=== PATIENT | female | born 1995 | race Hispanic/Latino ===

== ENCOUNTER 2018-03-20 02:29 | Emergency (ER) | payer BC ==
[2018-03-20 03:32] LABS: APPEARANCE,URINE Clear (CLEAR); BILIRUBIN,URINE Negative (NEGATIVE); COLOR,URINE Yellow (YELLOW); GLUCOSE, URINE (UA) Negative (NEGATIVE); KETONES,URINE >=80 mg/dL (NEGATIVE); LEUKOCYTE ESTERASE ,URINE Negative (NEGATIVE); NITRATE,URINE Negative (NEGATIVE); OCCULT BLOOD,URINE Negative (NEGATIVE); PH,URINE 5.5 (5.0-8.0); PROTEIN,URINE POS 1+ (NEGATIVE)
[2018-03-20 03:36] LABS: BASOPHILS % (AUTO) 0.1 % (0.0-5.0); HEMATOCRIT 39.9 % (36-48); LYMPHOCYTES % (AUTO) 9.5 % (21.0-51.0); MEAN CORPUSCULAR HEMOGLOBIN 30.1 pg (27.0-33.0); MEAN CORPUSCULAR HGB CONC 33.8 g/dL (32.0-36.0); MONOCYTES % (AUTO) 7.2 % (3.0-13.0); NEUTROPHILS % (AUTO) 83.2 % (40.0-77.0); NUCLEATED RED BLOOD CELLS 0.1 % (0.0-0.19); PLATELET COUNT (AUTO) 277 K/uL (130-400); RED BLOOD CELL COUNT(AUTO) 4.48 MIL/uL (4.00-5.50); RED CELL DISTRIBUTION WIDTH 13.5 % (11.0-15.5); WHITE BLOOD COUNT (AUTO) 8.2 K/uL (4.8-10.8)
[2018-03-20] MEDS ORDERED: KETOROLAC TROMETHAMINE 30MG/ML ONE (03:38)
[2018-03-20] MEDS ORDERED: ACETAMINOPHEN 325 MG TAB ONE (03:38)
[2018-03-20] MEDS ORDERED: SODIUM CHLORIDE 0.9% 1000ML 1,000 ML IV ONE (03:38)
[2018-03-20 03:40] LABS: AMPHET/METH SCREEN,URINE NEGATIVE (NEGATIVE); BARBITURATE SCREEN, URINE NEGATIVE (NEGATIVE); BENZODIAZEPINES SCREEN,URINE NEGATIVE (NEGATIVE); CANNABINOID SCREEN,URINE NEGATIVE (NEGATIVE); COCAINE SCREEN,URINE NEGATIVE (NEGATIVE); OPIATE SCREEN,URINE NEGATIVE (NEGATIVE); PHENCYCLIDINE SCREEN,URINE NEGATIVE (NEGATIVE)
[2018-03-20 03:45] LABS: CREATININE 0.8 mg/dL (0.5-1.5); POTASSIUM 3.5 mmol/L (3.5-5.1)
[2018-03-20 03:50] LABS: ALBUMIN 3.9 g/dL (3.5-5.0); TOTAL PROTEIN, SERUM 7.7 g/dL (6.0-8.3)
== END 2018-03-20 05:17 | disposition home or self-care (01) ==
LOC: EDH 02:29
DX: R07.89 Other chest pain (principal); R11.2 Nausea with vomiting, unspecified
CPT/HCPCS: 36415; 70450; 80053; 80305; 81003; 81025; 83690; 84484; 85025; 85378; 87804 ×2; 96361; 96374; 99285; J1885; J7030

== ENCOUNTER 2018-03-20 20:18 | Inpatient (IN) | payer BC ==
[~2018-03-20] VITALS: Ht 157.5 cm; Wt 58.1 kg
[2018-03-20] MEDS ORDERED: SODIUM CHLORIDE 0.9% 1000ML 1,000 ML IV ONE (21:14)
[2018-03-20] MEDS ORDERED: KETOROLAC TROMETHAMINE 30MG/ML ONE (21:14)
[2018-03-20] MEDS ORDERED: ASPIRIN 325 MG TABLET ONE (21:59)
[2018-03-20] MEDS ORDERED: NITROGLYCERIN 1GM/1 INCH PACKET TD ONE (21:59)
[2018-03-20] MEDS ORDERED: ENOXAPARIN SODIUM 60 MG/0.6 ML SQ ONE (23:53)
[2018-03-21] VITALS (10 sets, daily range): BP systolic 106–124; BP diastolic 63–87
[2018-03-21] MEDS ORDERED: ONDANSETRON HCL 4 MG/2 ML VIAL IV PRN
[2018-03-21] MEDS ORDERED: MORPHINE SULFATE 4 MG/1ML SYG IV PRN
[2018-03-21] MEDS ORDERED: ACETAMINOPHEN 325 MG TAB PO PRN
[2018-03-21] MEDS ORDERED: SODIUM CHLORIDE 0.9% 500ML 500 ML IV ONE (05:45)
[2018-03-21 06:01] LABS: CHOLESTEROL 111 mg/dL (<200); HDL CHOLESTEROL 56 mg/dL (35-85); LDL DIRECT 53 mg/dL (0-99); TRIGLYCERIDES 36 mg/dL (30-200)
[2018-03-21] MEDS: NITROGLYCERIN 1GM/1 INCH PACKET TD SCH ×3 (08:00→16:00)
[2018-03-21] MEDS ORDERED: ASPIRIN 325 MG TABLET PO SCH (09:00)
[2018-03-21] MEDS ORDERED: FAMOTIDINE/PF 20 MG/2 ML VIAL IV SCH (09:00)
[2018-03-21] MEDS ORDERED: HEPARIN SODIUM 1000UNIT/ML 10ML VIAL ONE (09:09)
[2018-03-21] MEDS ORDERED: IOHEXOL-350 50ML VIAL IV ONE (09:09)
[2018-03-21] MEDS ORDERED: NITROGLYCERIN 5 MG/ML 10 ML VIAL IV ONE (09:09)
[2018-03-21] MEDS ORDERED: BIVALIRUDIN 250 MG/VIAL IV ONE (09:09)
[2018-03-21] MEDS ORDERED: LIDOCAINE HCL 1% 20 ML VIAL ONE (09:09)
[2018-03-21] MEDS ORDERED: IOHEXOL 350 MG/ML 100ML INFUS..BTL IV ONE (09:09)
[2018-03-21] MEDS ORDERED: MIDAZOLAM HCL 1 MG/ML 2ML VIAL ONE ×2 (09:28→10:11)
[2018-03-21] MEDS ORDERED: FENTANYL CITRATE PF 50 MCG/1 ML 2ML VIAL ONE (09:28)
[2018-03-21] MEDS ORDERED: NITROGLYCERIN 0.4 MG SL TAB SL PRN (10:45)
[2018-03-21] MEDS ORDERED: HYDRALAZINE HCL 20 MG/ML VIAL IV PRN (10:45)
[2018-03-21] MEDS ORDERED: METOPROLOL TARTRATE 1 MG/ML 5ML VIAL IV PRN (10:45)
[2018-03-21] MEDS ORDERED: SODIUM CHLORIDE 0.9% 1000ML 1,000 ML IV SCH (11:00)
--- NOTE | 2018-03-21 11:15 | NUR ---
POST PROCEDURE RECEIVED PT FROM SUPERINTENDENT [employer]CTION, IN FLAT POSITION, A&OX3, CALM COOPERATIVE AND DOES NOT APPEAR TO BE IN ANY DISTRESS NOR ANY NEURO DEFICITS PRESENT. LEFT GROIN SITE DRY AND INTACT WITH NO OOZING OR HEMATOMA PRESENT. DP/PT PULSES PALPABLE AND VERIFIED BY DOPPLER. PT ON BEDREST FOR 2 HOURS UNTIL 1300. CALL LIGHT WITHIN REACH, FAMILY AT BEDSIDE.
--- NOTE | 2018-03-21 13:08 | NUR ---
DC PLAN VISITED WITH PATIENT. PATIENT LIVES WITH PARENTS. INDEPENDENT ABLE TO PERFORM ADL'S. PATIENT HAS NO SERVICES OR DME'S. FEELS SAFE TO RETURN HOME. Addendum: 03/21/18 at 1309 by MARTELL JENSEN RN CM Amended: Links added.
--- NOTE | 2018-03-21 13:30 | NUR ---
BEDREST COMPLETE LEFT GROIN SOFT NONTENDER WITH NO OOZING OR HEMATOMA PRESENT. DP/PT PULSES BY DOPPLER. PT DOES C/O INCISIONAL DISCOMFORT. PT REPOSITIONED TO HIGH ANDRADE'S POSITION, TOLERATING WELL, CALL LIGHT WITHIN REACH, FAMILY AT BEDSIDE.
[2018-03-21] MEDS: ASPIRIN 81MG TAB.CHEW PO SCH (16:39)
[2018-03-21] MEDS: METOPROLOL TARTRATE 25 MG TAB PO SCH ×2 (16:39→18:50)
--- NOTE | 2018-03-21 18:16 | NUR ---
AMBULATION PT AMBULATING IN HALLWAY, GAIT SLOW BUT STEADY WITH STAND BY ASSIST, PT DENIES DIZZINESS, LIGHTHEADEDNESS, DYSPNEA ON EXERTION BUT DOES C/O SORENESS TO INCISION SITE, RT GROIN SOFT WITH NO OOZING OR HEMATOMA PRESENT. DP/PT PULSES PALPABLE. CALL LIGHT WITHIN REACH, FAMILY AT BEDSIDE.
[2018-03-21] MEDS ORDERED: PHARMACY COMMUNICATION MISC SCH (19:15)
[2018-03-21] MEDS: FAMOTIDINE 20MG TAB 20 MG TAB PO SCH (21:45)
[2018-03-22] MEDS: NITROGLYCERIN 1GM/1 INCH PACKET TD SCH ×2 (00:24→08:43)
[2018-03-22 03:55] VITALS: BP 112/63
[2018-03-22 04:06] LABS: CHOLESTEROL 112 mg/dL (<200); HDL CHOLESTEROL 52 mg/dL (35-85); LDL DIRECT 59 mg/dL (0-99); TRIGLYCERIDES 31 mg/dL (30-200)
--- NOTE | 2018-03-22 07:30 | NUR ---
ASSESSMENT ENCOUNTERED PT A&OX3, CALM COOPERATIVE AND DOES NOT APPEAR TO BE IN ANY DISTRESS NOR ANY NEURO DEFICITS PRESENT. PT DENIES PAIN, SOB, NAUSEA. RT AND LEFT GROIN SOFT NO OOZING OR HEMATOMA PRESENT. DP/PT PULSES PALPABLE. PT IS AMBULATORY, GAIT SLOW BUT STEADY AND STRONG. CALL LIGHT WITHIN REACH, FAMILY AT BEDSIDE.
[2018-03-22 07:34] VITALS: BP 116/76
[2018-03-22] MEDS: METOPROLOL TARTRATE 25 MG TAB PO SCH (08:42)
[2018-03-22] MEDS: ASPIRIN 81MG TAB.CHEW PO SCH (08:42)
[2018-03-22] MEDS: FAMOTIDINE 20MG TAB 20 MG TAB PO SCH (08:42)
[2018-03-22] MEDS ORDERED: ASPIRIN 81MG TAB.CHEW PO SCH (09:00)
[2018-03-22 11:45] VITALS: BP 106/69
--- NOTE | 2018-03-22 13:30 | NUR ---
DISCHARGE INSTRUCTIONS GIVEN, PIV REMOVED AND INTACT, DISCHARGED HOME TO FAMILY VEHICLE VIA WHEELCHAIR.
[2018-03-22] MEDS ORDERED: METOPROLOL TARTRATE 25 MG TAB PO SCH (21:00)
== END 2018-03-22 13:40 | disposition home or self-care (01) | DRG 282 ==
LOC: EDH 20:18 → EDHIP 23:30 → OBSVTOIN 23:30 → 2BH 03-21 10:59
PROVIDERS: ADMIT Internal Medicine; ATTEND Internal Medicine
PROC: 4A023N7 Measurement of Cardiac Sampling and Pressure, Left Heart, Percutaneous Approach (ICD-10-PCS; principal; 2018-03-21)
PROC: B2111ZZ Fluoroscopy of Multiple Coronary Arteries using Low Osmolar Contrast (ICD-10-PCS; 2018-03-21)
PROC: B2151ZZ Fluoroscopy of Left Heart using Low Osmolar Contrast (ICD-10-PCS; 2018-03-21)
DX: I21.4 Non-ST elevation (NSTEMI) myocardial infarction (principal); I25.111 Atherosclerotic heart disease of native coronary artery with angina pectoris with documented spasm; Z83.3 Family history of diabetes mellitus; I24.9 Acute ischemic heart disease, unspecified; Z82.49 Family history of ischemic heart disease and other diseases of the circulatory system
CPT/HCPCS: 36415; 80061; 84484; 93005; 93458; 99156; 99157; C1894; G0378; J0583; J1644; J1650; J1885; J2250; J3010; J3490; J7030; J7040; Q9967

== ENCOUNTER 2018-04-06 15:07 | Observation (INO) | payer BC ==
[~2018-04-06] VITALS: Ht 157.5 cm; Wt 59.4 kg
[2018-04-06] MEDS ORDERED: NITROGLYCERIN 1GM/1 INCH PACKET TD ONE (15:16)
[2018-04-06 15:46] LABS: BASOPHILS % (AUTO) 0.8 % (0.0-5.0); EOSINOPHILS % (AUTO) 1.7 % (0.0-8.0); LYMPHOCYTES % (AUTO) 27.5 % (21.0-51.0); MEAN CORPUSCULAR HEMOGLOBIN 29.4 pg (27.0-33.0); MEAN CORPUSCULAR HGB CONC 33.2 g/dL (32.0-36.0); MEAN CORPUSCULAR VOLUME 88.6 fL (79-99); PLATELET COUNT (AUTO) 352 K/uL (130-400); RED BLOOD CELL COUNT(AUTO) 4.29 MIL/uL (4.00-5.50); RED CELL DISTRIBUTION WIDTH 13.2 % (11.0-15.5); WHITE BLOOD COUNT (AUTO) 6.6 K/uL (4.8-10.8)
[2018-04-06 15:52] LABS: BILIRUBIN,URINE Negative (NEGATIVE); COLOR,URINE Yellow (YELLOW); GLUCOSE, URINE (UA) Negative (NEGATIVE); KETONES,URINE Negative (NEGATIVE); LEUKOCYTE ESTERASE ,URINE Negative (NEGATIVE); NITRATE,URINE Negative (NEGATIVE); OCCULT BLOOD,URINE Large (NEGATIVE); PROTEIN,URINE Negative (NEGATIVE); UROBILINOGEN,URINE 0.2 mg/dL (0.2-1.0)
[2018-04-06 15:54] LABS: APPEARANCE,URINE CLEAR (CLEAR)
[2018-04-06 15:57] LABS: HCG,QUAL RESULT NEGATIVE (NEGATIVE)
[2018-04-06 15:59] LABS: AMPHET/METH SCREEN,URINE NEGATIVE (NEGATIVE); BARBITURATE SCREEN, URINE NEGATIVE (NEGATIVE); BENZODIAZEPINES SCREEN,URINE NEGATIVE (NEGATIVE); CANNABINOID SCREEN,URINE NEGATIVE (NEGATIVE); COCAINE SCREEN,URINE NEGATIVE (NEGATIVE); OPIATE SCREEN,URINE NEGATIVE (NEGATIVE); PHENCYCLIDINE SCREEN,URINE NEGATIVE (NEGATIVE)
[2018-04-06 16:00] LABS: BACTERIA,URINE Rare /HPF (None Seen); RBC,URINE 0-1 /HPF (0-1); WBC,URINE 0-1 /HPF (0-1)
[2018-04-06 16:00] LABS: CREATININE 0.8 mg/dL (0.5-1.5); POTASSIUM 3.7 mmol/L (3.5-5.1)
[2018-04-06 16:01] LABS: SQUAMOUS EPITHELIAL CELL,UR Few /HPF (0-2)
[2018-04-06 16:05] LABS: ALBUMIN 3.7 g/dL (3.5-5.0); BILIRUBIN,TOTAL 0.5 mg/dL (0.2-1.0); TOTAL PROTEIN, SERUM 7.3 g/dL (6.0-8.3)
[2018-04-06] MEDS ORDERED: ONDANSETRON HCL 4 MG/2 ML VIAL ONE (16:58)
[2018-04-06] MEDS ORDERED: MORPHINE SULFATE 4 MG/1ML SYG ONE (16:59)
[2018-04-06] MEDS ORDERED: ASPIRIN 325MG EC TAB 325 MG TABLET.DR PO STA (19:15)
[2018-04-06] MEDS: SODIUM CHLORIDE 0.9% 1000ML 1,000 ML IV SCH (19:17)
[2018-04-06] MEDS ORDERED: POTASSIUM CHLORIDE 20 MEQ ERTAB PO PRN (19:30)
[2018-04-06] MEDS ORDERED: POTASSIUM CHLORIDE 10% ELIXIR 20 MEQ/15 ML UDCUP PO PRN (19:30)
[2018-04-06] MEDS ORDERED: ACETAMINOPHEN 325 MG TAB PO PRN ×2 (19:30)
[2018-04-06] MEDS ORDERED: MAGNESIUM 2GM PREMIX 50ML 50 ML IV PRN (19:30)
[2018-04-06] MEDS ORDERED: MORPHINE SULFATE 4 MG/1ML SYG IV PRN (19:30)
[2018-04-06] MEDS ORDERED: LIDOCAINE HCL-MPF 1% 2ML VIAL IVP PRN (19:30)
[2018-04-06] MEDS ORDERED: ONDANSETRON HCL 4 MG/2 ML VIAL IV PRN (19:30)
[2018-04-06] MEDS ORDERED: MORPHINE SULFATE 2 MG/ML 1ML SYG IV PRN (19:30)
[2018-04-06] MEDS ORDERED: POTASSIUM CHLORIDE 20MEQ/100ML 100 ML IV PRN (19:30)
[2018-04-06] MEDS ORDERED: NITROGLYCERIN 0.4 MG SL TAB SL PRN (19:30)
[2018-04-06] MEDS: METOPROLOL TARTRATE 25 MG TAB PO SCH (21:00)
[2018-04-06] MEDS ORDERED: FAMOTIDINE 20MG TAB 20 MG TAB ONE (21:43)
[2018-04-06] MEDS ORDERED: ASPIRIN 325 MG TABLET ONE (21:44)
[2018-04-06] MEDS ORDERED: SODIUM CHLORIDE 0.9% 1000ML 1,000 ML IV ONE (21:44)
[2018-04-06] MEDS: FAMOTIDINE 20MG TAB 20 MG TAB PO SCH (21:45)
[2018-04-06] MEDS ORDERED: MAGNESIUM 2GM PREMIX 50ML 50 ML IV ONE (21:46)
[2018-04-06 23:00] LABS: CREATINE KINASE, TOTAL 56 U/L (21-232); MYOGLOBIN 15 ng/mL (10-92); TROPONIN I < 0.04 ng/mL (0.00-0.06)
[2018-04-07] MEDS ORDERED: IOHEXOL-350 50ML VIAL IV ONE (00:23)
[2018-04-07 01:10] VITALS: BP 109/66
[2018-04-07] MEDS ORDERED: NITR0.4T50 SL (01:50)
[2018-04-07] MEDS ORDERED: RANO500T2 PO (01:50)
[2018-04-07] MEDS ORDERED: ASPI-555 PO (01:50)
[2018-04-07 04:15] VITALS: BP 93/58
[2018-04-07 04:38] LABS: BASOPHILS % (AUTO) 0.7 % (0.0-5.0); EOSINOPHILS % (AUTO) 1.5 % (0.0-8.0); HEMATOCRIT 34.1 % (36-48); LYMPHOCYTES % (AUTO) 30.1 % (21.0-51.0); MEAN CORPUSCULAR HEMOGLOBIN 29.3 pg (27.0-33.0); MEAN CORPUSCULAR HGB CONC 32.9 g/dL (32.0-36.0); MONOCYTES % (AUTO) 6.3 % (3.0-13.0); NEUTROPHILS % (AUTO) 61.4 % (40.0-77.0); NUCLEATED RED BLOOD CELLS 0.1 % (0.0-0.19); PLATELET COUNT (AUTO) 279 K/uL (130-400); RED BLOOD CELL COUNT(AUTO) 3.84 MIL/uL (4.00-5.50); RED CELL DISTRIBUTION WIDTH 13.5 % (11.0-15.5); WHITE BLOOD COUNT (AUTO) 8.1 K/uL (4.8-10.8)
[2018-04-07 05:14] LABS: ALANINE AMINOTRANSFERASE 15 U/L (12-78); ALBUMIN 3.1 g/dL (3.5-5.0); ASPARTATE AMINOTRANSFERASE 14 U/L (10-37); BILIRUBIN,TOTAL 0.6 mg/dL (0.2-1.0); CARBON DIOXIDE 25 mmol/L (21-32); CHLORIDE 105 mmol/L (101-111); CHOLESTEROL 116 mg/dL (<200); CREATINE KINASE, TOTAL 51 U/L (21-232); CREATININE 0.7 mg/dL (0.5-1.5); GLOMERULAR FILTR. RATE CALC 111 mL/min (>60); GLUCOSE,RANDOM 95 mg/dL (70-105); HDL CHOLESTEROL 46 mg/dL (35-85); LDL DIRECT 71 mg/dL (0-99); MYOGLOBIN 31 ng/mL (10-92); SODIUM SERUM 139 mmol/L (136-145); TOTAL PROTEIN, SERUM 6.1 g/dL (6.0-8.3); TRIGLYCERIDES 32 mg/dL (30-200); TROPONIN I < 0.04 ng/mL (0.00-0.06); UREA NITROGEN, BLOOD 11 mg/dL (7-18)
[2018-04-07] MEDS: METOPROLOL TARTRATE 25 MG TAB PO SCH (07:58)
[2018-04-07 08:00] VITALS: BP 98/50
[2018-04-07] MEDS: FAMOTIDINE 20MG TAB 20 MG TAB PO SCH (08:02)
[2018-04-07] MEDS ORDERED: ASPIRIN 325MG EC TAB 325 MG TABLET.DR PO SCH (09:00)
[2018-04-07] MEDS ORDERED: ENOXAPARIN SODIUM 30 MG/0.3 ML SQ SCH (09:00)
--- NOTE | 2018-04-07 10:55 | NUR ---
Patient c/o of chest pain. Awake Alert and oriented x3, family at bedside calming pt down. VS taken 121/79 hr 123. FRANCESCA Broussard notified, EKG, troponin, and CE stat. Instructed patient to breath in through nose, exhale through lips. O2 placed on 2lpm via NC. Saturation 99%. Rhythm now 98. Patient calm upon exiting room. VS stable Addendum: 04/07/18 at 1113 by ANOOP ROLLINS RN RN Will continue to monitor
[2018-04-07 11:00] VITALS: BP 116/69
--- NOTE | 2018-04-07 11:19 | NUR ---
F/U on patient. Patient states pain to mid chest between breast now dull. Patient seems more relax. Alert, awake and oriented. Will continue to monitor.
[2018-04-07 12:12] LABS: CREATINE KINASE, TOTAL 61 U/L (21-232); MYOGLOBIN 23 ng/mL (10-92); TROPONIN I < 0.04 ng/mL (0.00-0.06)
[2018-04-07] MEDS ORDERED: ALPRAZOLAM 1 MG TAB PO ONE (12:40)
[2018-04-07] MEDS: SODIUM CHLORIDE 0.9% 1000ML 1,000 ML IV SCH (12:55)
== END 2018-04-07 15:52 | disposition home or self-care (01) ==
LOC: EDH 15:07 → EDHIP 19:15 → 4BH 23:11
PROVIDERS: ADMIT Internal Medicine; ATTEND Internal Medicine
DX: R07.89 Other chest pain (principal); R42 Dizziness and giddiness; E11.9 Type 2 diabetes mellitus without complications; R20.0 Anesthesia of skin; R51 Headache; I25.2 Old myocardial infarction; Z83.3 Family history of diabetes mellitus; Z82.49 Family history of ischemic heart disease and other diseases of the circulatory system; Z79.899 Other long term (current) drug therapy
CPT/HCPCS: 36415 ×2; 70470; 80053 ×2; 80061; 80305; 81001; 81025; 82550 ×3; 83735 ×2; 83874 ×3; 84443; 84484 ×5; 85025 ×2; 85378; 93005 ×3; 96361 ×2; 96365; 96366; 96372; 99283; G0378 ×21; J1650; J2270; J2405; J3475; J7030 ×2; Q9967

== ENCOUNTER 2018-04-13 02:28 | Emergency (ER) | payer BC ==
[~2018-04-13 02:28] MED LIST: ASPI-555 PO; NITR0.4T50 SL; RANO500T2 PO
[2018-04-13 03:16] LABS: BASOPHILS % (AUTO) 0.7 % (0.0-5.0); EOSINOPHILS % (AUTO) 3.6 % (0.0-8.0); HEMATOCRIT 38.1 % (36-48); LYMPHOCYTES % (AUTO) 42.4 % (21.0-51.0); MEAN CORPUSCULAR HEMOGLOBIN 29.6 pg (27.0-33.0); MEAN CORPUSCULAR HGB CONC 33.5 g/dL (32.0-36.0); MEAN CORPUSCULAR VOLUME 88.4 fL (79-99); NEUTROPHILS % (AUTO) 45.3 % (40.0-77.0); NUCLEATED RED BLOOD CELLS 0.1 % (0.0-0.19); PLATELET COUNT (AUTO) 274 K/uL (130-400); RED BLOOD CELL COUNT(AUTO) 4.31 MIL/uL (4.00-5.50); RED CELL DISTRIBUTION WIDTH 13.4 % (11.0-15.5); WHITE BLOOD COUNT (AUTO) 7.8 K/uL (4.8-10.8)
[2018-04-13 03:18] LABS: CREATININE 0.4 mg/dL (0.5-1.5); POTASSIUM 5.5 mmol/L (3.5-5.1)
[2018-04-13 03:23] LABS: INR 0.95 (0.85-1.15)
[2018-04-13 03:28] LABS: ALBUMIN 3.8 g/dL (3.5-5.0); BILIRUBIN,TOTAL 0.6 mg/dL (0.2-1.0); TOTAL PROTEIN, SERUM 7.2 g/dL (6.0-8.3)
[2018-04-13] MEDS ORDERED: ASPIRIN 325 MG TABLET ONE (03:39)
[2018-04-13 03:50] LABS: APPEARANCE,URINE Clear (CLEAR); BILIRUBIN,URINE Negative (NEGATIVE); COLOR,URINE Yellow (YELLOW); GLUCOSE, URINE (UA) Negative (NEGATIVE); KETONES,URINE Negative (NEGATIVE); LEUKOCYTE ESTERASE ,URINE Negative (NEGATIVE); NITRATE,URINE Negative (NEGATIVE); OCCULT BLOOD,URINE Negative (NEGATIVE); PH,URINE 7.5 (5.0-8.0); PROTEIN,URINE Negative (NEGATIVE); UROBILINOGEN,URINE 0.2 mg/dL (0.2-1.0)
[2018-04-13 03:53] LABS: HCG,QUAL RESULT NEGATIVE (NEGATIVE)
[2018-04-13 03:58] LABS: AMPHET/METH SCREEN,URINE NEGATIVE (NEGATIVE); BARBITURATE SCREEN, URINE NEGATIVE (NEGATIVE); BENZODIAZEPINES SCREEN,URINE NEGATIVE (NEGATIVE); CANNABINOID SCREEN,URINE NEGATIVE (NEGATIVE); COCAINE SCREEN,URINE NEGATIVE (NEGATIVE); OPIATE SCREEN,URINE NEGATIVE (NEGATIVE); PHENCYCLIDINE SCREEN,URINE NEGATIVE (NEGATIVE)
[2018-04-13] MEDS ORDERED: DiphenhydrAMINE HCL 50 MG/ML VIAL ONE (04:03)
[2018-04-13] MEDS ORDERED: SODIUM CHLORIDE 0.9% 1000ML 1,000 ML IV ONE (04:03)
== END 2018-04-13 05:32 | disposition home or self-care (01) ==
LOC: EDH 02:28
DX: R07.89 Other chest pain (principal); R68.84 Jaw pain; Z79.82 Long term (current) use of aspirin
CPT/HCPCS: 36415; 70450; 71045; 80053; 80305; 81003; 81025; 82550; 83735; 83874; 84484; 85025; 85610; 85730; 93005; 96374; 99285; J1200; J7030

== ENCOUNTER 2018-04-13 16:34 | Emergency (ER) | payer BC ==
[2018-04-13] MEDS ORDERED: DiphenhydrAMINE HCL 50 MG/ML VIAL ONE (17:30)
[2018-04-13 17:33] LABS: BASOPHILS % (AUTO) 0.5 % (0.0-5.0); EOSINOPHILS % (AUTO) 4.4 % (0.0-8.0); HEMATOCRIT 36.8 % (36-48); LYMPHOCYTES % (AUTO) 42.1 % (21.0-51.0); MEAN CORPUSCULAR HEMOGLOBIN 29.4 pg (27.0-33.0); MONOCYTES % (AUTO) 9.5 % (3.0-13.0); NEUTROPHILS % (AUTO) 43.5 % (40.0-77.0); NUCLEATED RED BLOOD CELLS 0.1 % (0.0-0.19); PLATELET COUNT (AUTO) 278 K/uL (130-400); RED BLOOD CELL COUNT(AUTO) 4.13 MIL/uL (4.00-5.50); RED CELL DISTRIBUTION WIDTH 13.5 % (11.0-15.5); WHITE BLOOD COUNT (AUTO) 5.2 K/uL (4.8-10.8)
[2018-04-13 17:46] LABS: INR 1.01 (0.85-1.15); PARTIAL THROMBOPLASTIN TIME 31.7 SEC (26.3-35.5); PROTHROMBIN TIME 10.6 SEC (9.6-11.6)
[2018-04-13 17:47] LABS: CREATININE 0.7 mg/dL (0.5-1.5); POTASSIUM 3.8 mmol/L (3.5-5.1)
[2018-04-13 17:51] LABS: ALBUMIN 3.7 g/dL (3.5-5.0); BILIRUBIN,TOTAL 0.7 mg/dL (0.2-1.0); TOTAL PROTEIN, SERUM 7.1 g/dL (6.0-8.3)
== END 2018-04-13 19:00 | disposition home or self-care (01) ==
LOC: EDH 16:34
DX: G24.8 Other dystonia (principal); Z98.890 Other specified postprocedural states
CPT/HCPCS: 36415; 80053; 82550; 83735; 84484; 85025; 85610; 85730; 96374; 99285; J1200

== ENCOUNTER 2019-01-08 11:08 | Emergency (ER) | payer BC ==
[2019-01-08] MEDS ORDERED: ONDANSETRON HCL 4 MG/2 ML VIAL ONE (11:26)
[2019-01-08] MEDS ORDERED: SODIUM CHLORIDE 0.9% 1000ML 1,000 ML IV ONE ×3 (11:27→15:50)
[2019-01-08 12:07] LABS: BASOPHILS % (AUTO) 0.3 % (0.0-5.0); EOSINOPHILS % (AUTO) 2.9 % (0.0-8.0); HEMATOCRIT 35.7 % (36-48); LYMPHOCYTES % (AUTO) 12.6 % (21.0-51.0); MEAN CORPUSCULAR HEMOGLOBIN 30.8 pg (27.0-33.0); MEAN CORPUSCULAR HGB CONC 34.6 g/dL (32.0-36.0); MEAN CORPUSCULAR VOLUME 88.8 fL (79-99); MONOCYTES % (AUTO) 7.6 % (3.0-13.0); NEUTROPHILS % (AUTO) 76.6 % (40.0-77.0); PLATELET COUNT (AUTO) 263 K/uL (130-400); RED BLOOD CELL COUNT(AUTO) 4.01 MIL/uL (4.00-5.50); RED CELL DISTRIBUTION WIDTH 14.2 % (11.0-15.5); WHITE BLOOD COUNT (AUTO) 9.5 K/uL (4.8-10.8)
[2019-01-08 12:09] LABS: APPEARANCE,URINE Clear (CLEAR); BILIRUBIN,URINE Negative (NEGATIVE); COLOR,URINE Yellow (YELLOW); GLUCOSE, URINE (UA) Negative (NEGATIVE); KETONES,URINE Negative (NEGATIVE); LEUKOCYTE ESTERASE ,URINE Negative (NEGATIVE); NITRATE,URINE Negative (NEGATIVE); OCCULT BLOOD,URINE Negative (NEGATIVE); PH,URINE 6.5 (5.0-8.0); PROTEIN,URINE Negative (NEGATIVE); UROBILINOGEN,URINE 0.2 mg/dL (0.2-1.0)
[2019-01-08 12:17] LABS: RAPID GROUP A STREP NEGATIVE (NEGATIVE)
[2019-01-08 12:18] LABS: CREATININE 0.5 mg/dL (0.5-1.5); POTASSIUM 3.7 mmol/L (3.5-5.1)
[2019-01-08 12:25] LABS: ALBUMIN 3.2 g/dL (3.5-5.0); BILIRUBIN,TOTAL 0.3 mg/dL (0.2-1.0); TOTAL PROTEIN, SERUM 7.6 g/dL (6.0-8.3)
[2019-01-08] MEDS ORDERED: ACETAMINOPHEN 325 MG TAB ONE (14:03)
[2019-01-08 15:11] LABS: AMPHET/METH SCREEN,URINE NEGATIVE (NEGATIVE); BARBITURATE SCREEN, URINE NEGATIVE (NEGATIVE); BENZODIAZEPINES SCREEN,URINE NEGATIVE (NEGATIVE); CANNABINOID SCREEN,URINE NEGATIVE (NEGATIVE); COCAINE SCREEN,URINE NEGATIVE (NEGATIVE); OPIATE SCREEN,URINE NEGATIVE (NEGATIVE); PHENCYCLIDINE SCREEN,URINE NEGATIVE (NEGATIVE)
== END 2019-01-08 16:36 | disposition home or self-care (01) ==
LOC: EDH 11:08
DX: O21.8 Other vomiting complicating pregnancy (principal); O26.892 Other specified pregnancy related conditions, second trimester; R50.9 Fever, unspecified; R00.0 Tachycardia, unspecified; E86.0 Dehydration; Z98.890 Other specified postprocedural states; Z3A.15 15 weeks gestation of pregnancy
CPT/HCPCS: 36415; 80053; 80305; 81003; 84484; 85025; 87804 ×2; 87880; 93005; 96361; 96374; 99291; J2405; J7030 ×3

== ENCOUNTER 2019-07-09 20:50 | Observation (INO) | payer BC, MEDICAID ==
[~2019-07-09] VITALS: Ht 157.5 cm; Wt 73.5 kg
[2019-07-09] VITALS: BP 134/77
[~2019-07-09 20:50] MED LIST changes: -ASPI-555 PO; +ASPI-556 PO
[2019-07-09] MEDS ORDERED: ASPIRIN 325 MG TABLET ONE (21:10)
[2019-07-09 21:37] LABS: HCG,QUAL RESULT POSITIVE (NEGATIVE)
[2019-07-09 21:40] LABS: APPEARANCE,URINE Clear (CLEAR); BILIRUBIN,URINE Negative (NEGATIVE); COLOR,URINE Yellow (YELLOW); GLUCOSE, URINE (UA) Negative (NEGATIVE); KETONES,URINE Negative (NEGATIVE); LEUKOCYTE ESTERASE ,URINE Moderate (NEGATIVE); NITRATE,URINE Negative (NEGATIVE); OCCULT BLOOD,URINE Large (NEGATIVE); PH,URINE 7.5 (5.0-8.0); PROTEIN,URINE Negative (NEGATIVE); UROBILINOGEN,URINE 0.2 mg/dL (0.2-1.0)
[2019-07-09 21:41] LABS: AMPHET/METH SCREEN,URINE NEGATIVE (NEGATIVE); BARBITURATE SCREEN, URINE NEGATIVE (NEGATIVE); BENZODIAZEPINES SCREEN,URINE NEGATIVE (NEGATIVE); CANNABINOID SCREEN,URINE NEGATIVE (NEGATIVE); COCAINE SCREEN,URINE NEGATIVE (NEGATIVE); OPIATE SCREEN,URINE NEGATIVE (NEGATIVE); PHENCYCLIDINE SCREEN,URINE NEGATIVE (NEGATIVE)
[2019-07-09 21:46] LABS: BASOPHILS % (AUTO) 0.6 % (0.0-5.0); EOSINOPHILS % (AUTO) 3.8 % (0.0-8.0); LYMPHOCYTES % (AUTO) 24.2 % (21.0-51.0); MEAN CORPUSCULAR HGB CONC 29.6 g/dL (32.0-36.0); MEAN CORPUSCULAR VOLUME 84.6 fL (79-99); NEUTROPHILS % (AUTO) 63.5 % (40.0-77.0); NUCLEATED RED BLOOD CELLS 1.5 % (0.0-0.19); PLATELET COUNT (AUTO) 388 K/uL (130-400); RED BLOOD CELL COUNT(AUTO) 2.72 MIL/uL (4.00-5.50); RED CELL DISTRIBUTION WIDTH 16.3 % (11.0-15.5); WHITE BLOOD COUNT (AUTO) 10.5 K/uL (4.8-10.8)
[2019-07-09 21:47] LABS: BACTERIA,URINE Rare /HPF (None Seen); RBC,URINE None Seen /HPF (0-1); SQUAMOUS EPITHELIAL CELL,UR 0-2 /HPF (0-2)
[2019-07-09 21:59] LABS: CREATININE 0.6 mg/dL (0.5-1.5); INR 0.89 (0.85-1.15); PARTIAL THROMBOPLASTIN TIME 25.4 SEC (26.3-35.5); POTASSIUM 3.9 mmol/L (3.5-5.1); PROTHROMBIN TIME 9.7 SEC (9.6-11.6)
[2019-07-09 22:03] LABS: ALBUMIN 2.5 g/dL (3.5-5.0); BILIRUBIN,TOTAL 0.3 mg/dL (0.2-1.0); TOTAL PROTEIN, SERUM 6.5 g/dL (6.0-8.3)
[2019-07-09] MEDS ORDERED: LACTATED RINGERS 1000ML 1,000 ML IV SCH (23:45)
--- NOTE | 2019-07-10 00:30 | NUR ---
safety Patient came in for symptomatic anemia. Assisted to 111 to bed. Siderails up and bed down with call bed in reach. Notified of plan of care and blood transfusion. Patient consents. Questions answered. 2nd IV started . 1000cc NS infusing. No redness or infiltration to site.
--- NOTE | 2019-07-10 00:59 | NUR ---
blood 1st unit PRBC infusing IV to Left forearm. no transfusion reaction noted
[2019-07-10 01:00] VITALS: BP 153/89
[2019-07-10] MEDS ORDERED: FERR-82 PO (01:24)
[2019-07-10] MEDS ORDERED: PREN1TAB80 PO (01:25)
[2019-07-10] MEDS ORDERED: LACTATED RINGERS 1000ML 1,000 ML IV PRN (02:22)
[2019-07-10 03:00] VITALS: BP 133/88
--- NOTE | 2019-07-10 03:00 | NUR ---
safety 1st units PRBC completed. No reaction noted
[2019-07-10 07:25] VITALS: BP 149/98
--- NOTE | 2019-07-10 07:30 | NUR ---
PATIENT ASSESSED AND C/O HAVING SOME CHEST PAIN AND STATES HAD CHEST PAIN WHEN SHE WAS ADMITTED TO ER. EKG DONE IN ER INDICATED NORMAL SINUS RHYTHM AND NORMAL EKG. PATIENT INSTRUCTED TO REST SINCE SHE CAME TO FLOOR WITH CHEST PAIN AND HAS HAD NO REST DUE TO TRANSFUSION ALL MORNING LONG.
[2019-07-10 08:16] LABS: BASOPHILS % (AUTO) 0.7 % (0.0-5.0); EOSINOPHILS % (AUTO) 4.4 % (0.0-8.0); HEMATOCRIT 32.6 % (36-48); LYMPHOCYTES % (AUTO) 22.1 % (21.0-51.0); MEAN CORPUSCULAR HEMOGLOBIN 27.1 pg (27.0-33.0); MEAN CORPUSCULAR HGB CONC 31.3 g/dL (32.0-36.0); MEAN CORPUSCULAR VOLUME 86.7 fL (79-99); MONOCYTES % (AUTO) 5.8 % (3.0-13.0); NEUTROPHILS % (AUTO) 65.5 % (40.0-77.0); NUCLEATED RED BLOOD CELLS 1.3 % (0.0-0.19); PLATELET COUNT (AUTO) 348 K/uL (130-400); RED BLOOD CELL COUNT(AUTO) 3.76 MIL/uL (4.00-5.50); RED CELL DISTRIBUTION WIDTH 15.9 % (11.0-15.5); WHITE BLOOD COUNT (AUTO) 9.1 K/uL (4.8-10.8)
[2019-07-10 08:26] LABS: INR 0.91 (0.85-1.15); PARTIAL THROMBOPLASTIN TIME 26.1 SEC (26.3-35.5); PROTHROMBIN TIME 9.9 SEC (9.6-11.6)
[2019-07-10 08:31] LABS: ALBUMIN 2.3 g/dL (3.5-5.0); BILIRUBIN,TOTAL 0.5 mg/dL (0.2-1.0); CREATININE 0.6 mg/dL (0.5-1.5); MAGNESIUM 1.7 mg/dL (1.80-2.40); PHOSPHORUS 4.4 mg/dL (2.5-4.9); POTASSIUM 4.1 mmol/L (3.5-5.1); TOTAL PROTEIN, SERUM 6.1 g/dL (6.0-8.3)
--- NOTE | 2019-07-10 11:00 | NUR ---
DR. BURNS CALLED AND MADE AWARE OF A.M. ELEVATED BP AND PATIENT C/O HAVING CHEST PAIN BUT PULSE IS STABLE AT 67BPM AND H/H IS UP FROM 6.[address] BURNS WAS MADE AWARE THAT BP HAS BEEN ELEVATED WITH DIASTOLIC IN THE 90S AND ORDER GIVEN FOR PEW TO BE DONE AND RESULTS BE CALLED TO HIM.
--- NOTE | 2019-07-10 11:50 | NUR ---
DR. BURNS WAS CALLED WITH RESULTS OF PEW AND ORDER GIVEN TO DISCHARGE PATIENT AND HAVE PATIENT FOLLOW UP WITH HER OF DOCTOR THIS WEEK FOR BP CHECK AND FOLLOW UP AFTER TRANSFUSION. PATIENT C/O STILL HAVING MILD CHEST PAIN.
[2019-07-10 12:01] VITALS: BP 150/98
--- NOTE | 2019-07-10 16:15 | NUR ---
PATIENT WAS GIVEN DISCHARGE INSTRUCTIONS AND WAS PROVIDED INFO ON IRON RICH DIET; AND ACTIVITY AFTER VAGINAL DELIVERY REINFORCED. PATIENT DENIES ANY FURTHER CHEST PAIN ON DISCHARGE. PIV REMOVED FROM LEFT FOREARM WITH WITH 18G AND FROM RIGHT FOREARM WITH 20 GAUGE. IV SITE WNL WITH NO EDEMA, REDNESS OR LEAKAGE. PATIENT IS STABLE AND DENIES ANY FURTHER SYMPTOMS OF ANEMIA.
[2019-07-10 16:40] VITALS: BP 148/100
--- NOTE | 2019-07-10 16:45 | NUR ---
PATIENT WAS TAKEN VIA W/C TO FAMILY VEHICLE AND WAS DISCHARGED TO FAMILY IN STABLE CONDITION. PATIENT DENIES ANY FURTHER CHEST PAIN AT THIS TIME.
== END 2019-07-10 16:45 | disposition home or self-care (01) ==
LOC: EDH 20:50 → EDHIP 22:30 → WSH 07-10
PROVIDERS: ADMIT Obstetrics & Gynecology; ATTEND Obstetrics & Gynecology
DX: D64.9 Anemia, unspecified (principal); R07.89 Other chest pain; R00.2 Palpitations; E10.321 Type 1 diabetes mellitus with mild nonproliferative diabetic retinopathy with macular edema; I25.2 Old myocardial infarction
CPT/HCPCS: 36415 ×2; 36430; 71045; 80053 ×2; 80305; 81001; 81025; 82550; 83735; 84100; 84484; 84550; 85025 ×2; 85384; 85610 ×2; 85730 ×2; 86850; 86900; 86901; 86922; 87088; 93005; 99285; G0378 ×3; J7120; P9016 ×2; 96360; 96361

== ENCOUNTER → 2021-05-03 | Outpatient (CLI) | payer MEDICAID ==
[~2021-05-03] MED LIST changes: +FERR-82 PO; +PREN1TAB80 PO
== END | disposition home or self-care (01) ==
LOC: SHCH 15:32
PROVIDERS: ATTEND Internal Medicine Cardiovascular Disease
DX: I47.1 Supraventricular tachycardia (principal); R00.2 Palpitations
CPT/HCPCS: 93306

== ENCOUNTER 2021-11-02 21:56 | Emergency (ER) | payer OTHER, MEDICAID ==
[~2021-11-02] VITALS: Ht 167.6 cm; Wt 70.8 kg
[~2021-11-02 21:56] MED LIST changes: -ASPI-556 PO; +ERGO2000 PO; -FERR-82 PO; -NITR0.4T50 SL; -PREN1TAB80 PO; -RANO500T2 PO
[2021-11-02 22:25] LABS: BASOPHILS % (AUTO) 0.5 % (0.0-5.0); EOSINOPHILS % (AUTO) 3.6 % (0.0-8.0); HEMATOCRIT 39.3 % (36-48); LYMPHOCYTES % (AUTO) 34.4 % (21.0-51.0); MEAN CORPUSCULAR HEMOGLOBIN 29.6 pg (27.0-33.0); MEAN CORPUSCULAR HGB CONC 34.4 g/dL (32.0-36.0); MEAN CORPUSCULAR VOLUME 86.2 fL (79-99); MONOCYTES % (AUTO) 7.5 % (3.0-13.0); NEUTROPHILS % (AUTO) 53.8 % (40.0-77.0); PLATELET COUNT (AUTO) 370 K/uL (130-400); RED BLOOD CELL COUNT(AUTO) 4.56 MIL/uL (4.00-5.50); RED CELL DISTRIBUTION WIDTH 12.9 % (11.0-15.5); WHITE BLOOD COUNT (AUTO) 11.5 K/uL (4.8-10.8)
[2021-11-02 22:32] LABS: CREATININE 0.8 mg/dL (0.5-1.5); POTASSIUM 3.3 mmol/L (3.5-5.1)
[2021-11-02 22:37] LABS: ALBUMIN 3.9 g/dL (3.5-5.0); TOTAL PROTEIN, SERUM 7.9 g/dL (6.0-8.3)
[2021-11-02 22:39] LABS: APPEARANCE,URINE CLEAR (CLEAR); BILIRUBIN,URINE NEGATIVE (NEGATIVE); COLOR,URINE COLORLESS (YELLOW); GLUCOSE, URINE (UA) NEGATIVE (NEGATIVE); KETONES,URINE NEGATIVE (NEGATIVE); LEUKOCYTE ESTERASE ,URINE 75 Leu/uL (NEGATIVE); NITRATE,URINE NEGATIVE (NEGATIVE); OCCULT BLOOD,URINE NEGATIVE (NEGATIVE); PH,URINE 5.5 (5.0-8.0); PROTEIN,URINE NEGATIVE (NEGATIVE); UROBILINOGEN,URINE 0.2 mg/dL (0.2-1.0)
[2021-11-02 22:43] LABS: AMPHET/METH SCREEN,URINE NEGATIVE (NEGATIVE); BARBITURATE SCREEN, URINE NEGATIVE (NEGATIVE); BENZODIAZEPINES SCREEN,URINE NEGATIVE (NEGATIVE); CANNABINOID SCREEN,URINE NEGATIVE (NEGATIVE); COCAINE SCREEN,URINE NEGATIVE (NEGATIVE); HCG,QUALITATIVE URINE NEGATIVE (NEGATIVE); PHENCYCLIDINE SCREEN,URINE NEGATIVE (NEGATIVE)
[2021-11-02 22:48] LABS: MUCUS,URINE RARE LPF (None Seen); SQUAMOUS EPITHELIAL CELL,UR FEW /HPF (0-2)
[2021-11-02 23:50] VITALS: BP 121/75
== END 2021-11-03 00:44 | disposition home or self-care (01) ==
LOC: EDH 21:56
DX: F41.9 Anxiety disorder, unspecified (principal)
CPT/HCPCS: 36415; 70450; 71045; 80053; 80305; 81001; 81025; 84484; 85025; 87088; 93005

== ENCOUNTER → 2023-04-21 | Outpatient (CLI) | payer BC ==
[2023-04-21 12:30] LABS: CREATININE 0.7 mg/dL (0.5-1.5); POTASSIUM 4.2 mmol/L (3.5-5.1)
== END | disposition home or self-care (01) ==
LOC: LAB 10:00
PROVIDERS: ATTEND Internal Medicine Cardiovascular Disease
DX: I95.1 Orthostatic hypotension (principal); G90.9 Disorder of the autonomic nervous system, unspecified
CPT/HCPCS: 36415; 80048; 83735

== ENCOUNTER 2023-05-06 20:59 | Emergency (ER) | payer BC ==
[~2023-05-06] VITALS: Ht 157.5 cm; Wt 62.6 kg
[2023-05-06 22:15] LABS: BASOPHILS # (AUTO) 0.04 K/uL (0.00-0.20); BASOPHILS % (AUTO) 0.4 % (0.0-5.0); EOSINOPHILS # (AUTO) 0.29 K/uL (0.00-0.70); EOSINOPHILS % (AUTO) 3.3 % (0.0-8.0); HEMATOCRIT 40.2 % (36-48); IMMATURE GRANULOCYTE ABSOLUTE 0.02 K/uL (0-1); LYMPHOCYTES # (AUTO) 2.6 K/uL (1.0-4.8); LYMPHOCYTES % (AUTO) 29.5 % (21.0-51.0); MEAN CORPUSCULAR HEMOGLOBIN 28.5 pg (27.0-33.0); MEAN CORPUSCULAR HGB CONC 32.3 g/dL (32.0-36.0); MEAN CORPUSCULAR VOLUME 88.2 fL (79-99); MONOCYTES # (AUTO) 0.5 K/uL (0.1-1.0); MONOCYTES % (AUTO) 5.9 % (3.0-13.0); NEUTROPHILS # (AUTO) 5.4 K/uL (1.8-7.7); NEUTROPHILS % (AUTO) 60.7 % (40.0-77.0); PLATELET COUNT (AUTO) 339 K/uL (130-400); RED BLOOD CELL COUNT(AUTO) 4.56 MIL/uL (4.00-5.50); RED CELL DISTRIBUTION WIDTH 13.3 % (11.0-15.5); WHITE BLOOD COUNT (AUTO) 8.9 K/uL (4.8-10.8)
[2023-05-06 22:24] LABS: CREATININE 0.6 mg/dL (0.5-1.0); POTASSIUM 4.2 mmol/L (3.5-5.1)
[2023-05-06 22:50] VITALS: BP 116/78; PULSE 98; RESP 16; O2SAT 100
[2023-05-07] MEDS ORDERED: IBUP-2070 PO (00:13)
[2023-05-07] MEDS ORDERED: CYCL-309 PO (00:13)
[2023-05-07] MEDS: IBUPROFEN 600 MG TABLET ONE (00:18)
[2023-05-07] MEDS: CYCLOBENZAPRINE HCL 10 MG TABLET ONE (00:18)
[2023-05-07] MEDS ORDERED: CYCLOBENZAPRINE HCL 10 MG TABLET PO ONE (00:30)
[2023-05-07] MEDS ORDERED: IBUPROFEN 600 MG TABLET PO ONE (00:30)
== END 2023-05-07 00:22 | disposition home or self-care (01) ==
LOC: EDH 20:59
DX: R10.819 Abdominal tenderness, unspecified site (principal)
CPT/HCPCS: 36415; 80048; 82550; 85025; 93005